=== PATIENT | female | born 1960 | race Caucasian/White ===

== ENCOUNTER 2021-04-27 14:30 | Inpatient (IN) ==
[2021-04-27] MEDS ORDERED: Melatonin 3 MG TABLET PO PRN (17:15)
[2021-04-27] MEDS ORDERED: Ondansetron 4 MG/2 ML VIAL IVP PRN (17:15)
[2021-04-27] MEDS ORDERED: Naloxone 0.4 MG/ML INJ IVP PRN (17:15)
[2021-04-27 18:34] LABS: Basophils % 0.4 %; Eosinophils % 0.1 %; Hematocrit 36.7 % (35.3-44.9); Hemoglobin 13.2 g/dL (11.5-15.4); Immature Granulocytes % 0.4 % (0-4); Lymphocytes # 1.2 K/mcL (0.6-4.6); Lymphocytes % 14.5 %; Mean Corpuscular Hemoglobin 35.5 pg (28.0-33.3); Mean Corpuscular Volume 98.7 fL (83.0-100.0); Mean Platelet Volume 8.5 fL (9.4-12.4); Monocytes # 0.7 K/mcL (0.0-1.3); Monocytes % 8.7 %; Neutrophils # 6.2 K/mcL (1.6-8.9); Platelet Count 223 K/mcL (140-400); Red Blood Count 3.72 M/mcL (3.82-4.97); Red Cell Distribution Width 12.3 % (11.5-14.5); Segmented Neutrophils % 75.9 %; White Blood Count 8.2 K/mcL (4.3-11.1)
[2021-04-27 18:40] LABS: Prothrombin Time 11.8 Seconds (9.4-12.1)
[2021-04-27 18:53] LABS: BUN/Creatinine Ratio 11 (6-26); Blood Urea Nitrogen 6 mg/dL (8-23); Calcium 9.5 mg/dL (8.6-10.3); Carbon Dioxide 22 mEq/L (23-29); Chloride 98 mEq/L (98-107); Glucose 124 mg/dL (70-105); Osmolality,Calculated 267 (280-300); Potassium 4.1 mEq/L (3.5-5.1); Sodium 129 mEq/L (136-145); eGFR For African Americans > 60 (> 60); eGFR For Non-African Americans > 60 (> 60)
[2021-04-28 02:33] LABS: Basophils % 0.4 %; Eosinophils % 0.6 %; Hematocrit 34.5 % (35.3-44.9); Hemoglobin 11.7 g/dL (11.5-15.4); Immature Granulocytes % 0.3 % (0-4); Lymphocytes # 1.7 K/mcL (0.6-4.6); Lymphocytes % 23.6 %; Mean Corpuscular HGB Conc 33.9 g/dL (31.6-35.5); Mean Corpuscular Hemoglobin 33.6 pg (28.0-33.3); Mean Corpuscular Volume 99.1 fL (83.0-100.0); Mean Platelet Volume 8.8 fL (9.4-12.4); Monocytes # 0.6 K/mcL (0.0-1.3); Monocytes % 9.1 %; Neutrophils # 4.7 K/mcL (1.6-8.9); Platelet Count 219 K/mcL (140-400); Red Blood Count 3.48 M/mcL (3.82-4.97); Red Cell Distribution Width 12.2 % (11.5-14.5)
[2021-04-28 02:46] LABS: BUN/Creatinine Ratio 23 (6-26); Blood Urea Nitrogen 14 mg/dL (8-23); Calcium 8.9 mg/dL (8.6-10.3); Carbon Dioxide 24 mEq/L (23-29); Chloride 97 mEq/L (98-107); Glucose 123 mg/dL (70-105); Osmolality,Calculated 276 (280-300); Sodium 132 mEq/L (136-145); eGFR For African Americans > 60 (> 60); eGFR For Non-African Americans > 60 (> 60)
[2021-04-28] MEDS ORDERED: Cyanocobalamin (B-12) 1,000 MCG TABLET PO SCH (09:00)
[2021-04-28] MEDS ORDERED: Cholecalciferol (D-3) 1,000 UNIT (25MCG) TABLET PO SCH (09:00)
[2021-04-28] MEDS ORDERED: FLUoxetine 20 MG CAPSULE PO SCH (09:00)
[2021-04-28] MEDS ORDERED: Ondansetron 4 MG/2 ML VIAL ONE (12:35)
[2021-04-28] MEDS ORDERED: Lidocaine -MPF 2% 2 ML VIAL ONE (12:35)
[2021-04-28] MEDS ORDERED: *HR* FentaNYL (PF) 100 MCG/2 ML VIAL ONE (12:35)
[2021-04-28] MEDS ORDERED: *HR* Propofol 200 MG/20 ML VIAL IVP ONE (12:35)
[2021-04-28] MEDS ORDERED: *HR* Midazolam HCl 2 MG/2 ML VIAL ONE (12:43)
[2021-04-28] MEDS ORDERED: Albuterol 2.5 MG/3 ML NEBULIZER IH PRN ×2 (12:51→14:50)
[2021-04-28] MEDS ORDERED: *HR* HYDROmorphone PF 0.5 MG/0.5 ML SYRINGE IVP PRN ×2 (12:51→14:50)
[2021-04-28] MEDS ORDERED: ceFAZolin 2,000 MG in Water for inj. (sterile) 20 ML IVP ONE (13:02)
[2021-04-28] MEDS ORDERED: Ringers Solution, Lactated 1,000 ML IVC ONE (13:03)
[2021-04-28] MEDS ORDERED: Acetaminophen IV 1,000 MG/100 ML BAG IVPB ONE (13:05)
[2021-04-28] MEDS ORDERED: Ondansetron 4 MG/2 ML VIAL IVP PRN (14:50)
[2021-04-28] MEDS ORDERED: Naloxone 0.4 MG/ML INJ IVP PRN (14:50)
[2021-04-28] MEDS ORDERED: Melatonin 3 MG TABLET PO PRN (14:50)
[2021-04-28] MEDS ORDERED: CeFAZolin 2 GM/120 ML BAG IVPB SCH (16:00)
[2021-04-28] MEDS: CeFAZolin 2 GM/120 ML BAG IVPB SCH (21:52)
[2021-04-29] MEDS: CeFAZolin 2 GM/120 ML BAG IVPB SCH (06:29)
[2021-04-29] MEDS ORDERED: Cyanocobalamin (B-12) 1,000 MCG TABLET PO SCH (09:00)
[2021-04-29] MEDS ORDERED: Aspirin Enteric Coated 325 MG Tablet PO SCH (09:00)
[2021-04-29] MEDS ORDERED: FLUoxetine 20 MG CAPSULE PO SCH (09:00)
[2021-04-29] MEDS ORDERED: Cholecalciferol (D-3) 1,000 UNIT (25MCG) TABLET PO SCH (09:00)
[2021-04-29 10:58] LABS: Basophils % 0.7 %; Eosinophils % 0.5 %; Hematocrit 33.8 % (35.3-44.9); Hemoglobin 11.4 g/dL (11.5-15.4); Lymphocytes # 1.5 K/mcL (0.6-4.6); Lymphocytes % 27.4 %; Mean Corpuscular HGB Conc 33.7 g/dL (31.6-35.5); Mean Corpuscular Hemoglobin 34.2 pg (28.0-33.3); Mean Corpuscular Volume 101.5 fL (83.0-100.0); Mean Platelet Volume 8.8 fL (9.4-12.4); Monocytes # 0.5 K/mcL (0.0-1.3); Monocytes % 8.5 %; Neutrophils # 3.5 K/mcL (1.6-8.9); Platelet Count 199 K/mcL (140-400); Red Blood Count 3.33 M/mcL (3.82-4.97); Red Cell Distribution Width 12.4 % (11.5-14.5); Segmented Neutrophils % 62.9 %; White Blood Count 5.5 K/mcL (4.3-11.1)
[2021-04-29 11:17] LABS: BUN/Creatinine Ratio 9 (6-26); Blood Urea Nitrogen 6 mg/dL (8-23); Calcium 9.4 mg/dL (8.6-10.3); Carbon Dioxide 27 mEq/L (23-29); Chloride 99 mEq/L (98-107); Glucose 140 mg/dL (70-105); Osmolality,Calculated 274 (280-300); Potassium 3.6 mEq/L (3.5-5.1); Sodium 132 mEq/L (136-145); eGFR For African Americans > 60 (> 60); eGFR For Non-African Americans > 60 (> 60)
[2021-04-29 11:27] VITALS: BP 138/79
== END 2021-04-29 15:00 | disposition home or self-care (01) | DRG 308 ==
LOC: 3NENU → SUATTDRO 16:21
PROVIDERS: ADMIT Internal Medicine; ATTEND Family Medicine